=== PATIENT | male | born 1955 | race Caucasian/White ===

== ENCOUNTER 2017-03-15 18:20 | Emergency (ER) | payer OTHER ==
[~2017-03-15 18:20] MED LIST: CEPH500C3 PO; INDO25CA PO; Z.0.NO CURRENT MEDS
[2017-03-15 18:29] VITALS: BP 131/85; PULSE 81; RESP 18; O2SAT 99
[2017-03-15] MEDS ORDERED: KETOROLAC TROMETHAMINE 30 MG/ML (IVP) VIAL IV PUSH ONE (20:30)
[2017-03-15] MEDS ORDERED: ONDANSETRON HCL 4 MG/2 ML VIAL IV PUSH ONE (20:30)
[2017-03-15] MEDS ORDERED: MORPHINE SULFATE 2 MG/ML INJ IV PUSH ONE (20:30)
[2017-03-15] MEDS ORDERED: methylPREDNISolone SOD SUCC 125 MG/2 ML VIAL IV PUSH ONE (20:30)
--- NOTE | 2017-03-15 21:00 | RADRPT ---
EXAM DATE/TIME: 03/15/2017 20:34 [facility] COMPARISON: No previous studies available for comparison. INDICATIONS : Patient complains of right wrist. No known injury. MEDICAL HISTORY : None. SURGICAL HISTORY : None. ENCOUNTER: Initial ACUITY: 3 days PAIN SCORE: 10/10 LOCATION: Right Wrist FINDINGS: Three view examination of the right wrist demonstrates no soft tissue swelling, dislocation, or fract ure. The carpal bones are in normal alignment. The joint spaces are maintained. Bony mineralizatio n is normal. CONCLUSION: Unremarkable examination of the right wrist. Hector Pressley MD on March 15, 2017 at 20:57 Board Certified Radiologist. This report was verified electronically.
--- NOTE | 2017-03-15 21:02 | RADRPT ---
EXAM DATE/TIME: 03/15/2017 20:40 [facility] COMPARISON: No previous studies available for comparison. INDICATIONS : Patient complains of right hand pain. No known injury. MEDICAL HISTORY : None. SURGICAL HISTORY : None. ENCOUNTER: Initial ACUITY: 3 days PAIN SCORE: 10/10 LOCATION: Right Hand FINDINGS: Three view examination of the right hand demonstrates no soft tissue swelling, dislocation, or fractu re. The carpal bones appear intact. The interphalangeal and metacarpophalangeal joints are intact. Bony mineralization is normal. CONCLUSION: Unremarkable examination of the right hand. Hector Pressley MD on March 15, 2017 at 20:59 Board Certified Radiologist. This report was verified electronically.
[2017-03-15 21:13] VITALS: BP 126/90; PULSE 83; RESP 18; TEMP 99.1; O2SAT 97
[2017-03-15] MEDS ORDERED: ALLO100T PO (21:20)
[2017-03-15] MEDS ORDERED: GABA800T PO (21:20)
[2017-03-15] MEDS ORDERED: HYDR-3583 PO (21:20)
[2017-03-15] MEDS ORDERED: ROBA500T PO (21:20)
--- NOTE | 2017-03-15 21:25 | PD ---
HPI Chief Complaint: right wrist pain Time Seen by Provider: 21:08 Travel History International Travel<30 days: No Contact w/Intl Traveler<30days: No Traveled to known affect area: No History of Present Illness HPI 61-year-old [id number] white male presents to emergency department by EMS with complaints of right wrist pain. The patient states that he did not have a ride here this evening. Patient states that he has a history of gout in the past. He has never had in his wrist but states that is very similar. The patient states that he is an alcoholic. He drinks a pint of alcohol daily. He has continued to take his allopurinol. He is also currently in pain management and takes hydrocodone 10 mg [address] Solano. Patient denies any trauma. No numbness or tingling. Patient states pain is severe. Worse with movement. No alleviating factors. No recent illness. No fever chills. PFSH Past Medical History Narrative Medical Anxiety, depression, gout, chronic pain Anxiety: Yes Depression: Yes Musculoskeletal: Yes (CHRONIC LUMBAR-SACRAL PAIN, DISCOGENIC SYNDROME) Tetanus Vaccination: < 5 Years ?: Not Past Surgical History Surgical History: No Previous Surgery Social History Alcohol Use: Yes (PINT daily) Tobacco Use: Yes (1/2 PPD) Substance Use: No Allergies-Medications (Allergen,Severity, Reaction): Coded Allergies: No Known Allergies (Verified Adverse Reaction, Unknown, 03/15/17) Reported Meds & Prescriptions Reported Meds & Active Scripts Active Keflex (Cephalexin Monohydrate) 500 Mg Cap 500 Mg PO BID Indomethacin 25 Mg Cap 50 Mg PO Q8 50 mg three times a day for 3 days, save other pills for any other flare ups Reported No Current Meds (Miscellaneous Medication) [facility] [place] Review of Systems General / Constitutional: No: Fever Eyes: No: Visual changes HENT: No: Headaches Cardiovascular: No: Chest Pain or Discomfort Respiratory: No: Shortness of Breath Gastrointestinal: No: Abdominal Pain Genitourinary: No: Dysuria Musculoskeletal: Positive: Arthralgias, Limited ROM, Edema, Pain Skin: No Rash Neurologic: No: Weakness, Paresthesia Psychiatric: No: Depression Endocrine: No: Polydipsia Hematologic/Lymphatic: No: Easy Bruising Physical Exam Narrative GENERAL: This is a well-nourished, well-developed patient, in no apparent distress. SKIN: No rashes, ecchymoses or lesions. Warm and dry. HEAD: Atraumatic. Normocephalic. EYES: PERRL, EOMI, no discharge or injection. No scleral icterus. EARS: Clear NOSE: Nasal turbinates appear normal. THROAT: Mucosa pink and moist. Airway patent. NECK: Trachea midline. supple, moves head freely. LUNGS: Clear to auscultation. CV: Regular in rhythm. ABDOMEN: Soft nontender. EXT: Examination of the right upper extremity reveals swelling, and an warmth in the right wrist. No erythema. Patient has global decreased range of motion due to pain. Patient is able to move his fingers freely. He has intact gross sensation and good Refill. No pain in the elbow or shoulder. Data Data Last Documented VS Vital Signs Date Time Temp Pulse Resp B/P (MAP) Pulse Ox O2 Delivery O2 Flow Rate FiO2 03/15/17 21:13 83 18 126/90 (102) 97 Room Air Orders Orders Hand, Complete ([id number]) (03/15/17 20:21) Wrist, Complete ([id number]) (03/15/17 20:21) Ice/Cold Pack (03/15/17 20:21) Ketorolac Inj (Toradol Inj) (03/15/17 20:30) Methylprednisolone So Succ Inj (Solumedr (03/15/17 20:30) Morphine Inj (Morphine Inj) (03/15/17 20:30) Ondansetron Inj (Zofran Inj) (03/15/17 20:30) Ketorolac Inj (Toradol Inj) (03/15/17 21:30) Dexamethasone Inj (Decadron Inj) (03/15/17 21:30) MDM Medical Decision Making Medical Screen Exam Complete: Yes Emergency Medical Condition: Yes Medical Record Reviewed: Yes Interpretation(s) Last 24 hours Impressions Wrist X-Ray 03/15/172020 Signed Impressions: Service Date/Time: Wednesday, March 15, 2017 20:34 - CONCLUSION: Unremarkable examination of the right wrist. Hector Pressley MD Hand X-Ray 03/15/172020 Signed Impressions: Service Date/Time: Wednesday, March 15, 2017 20:40 - CONCLUSION: Unremarkable examination of the right hand. Hector Pressley MD Differential Diagnosis Differential diagnoses: Sprain, strain, gout, fracture Narrative Course X-ray of the right wrist and hand are negative for bony injury. Patient's symptoms and history are consistent with gouty arthritis. Patient's given 2 mg morphine IM, Decadron 10 mg IM, Toradol 60 mg IM. Patient is made aware that we cannot adjust any opiates due to pain management. She'll be discharged home on prednisone and indomethacin. This is acute gouty arthritis right wrist Diagnosis Primary Impression: acute gouty arthritis right wrist Patient Instructions: General Instructions, Narcotic given in the ED Additional Instructions: Rest. Elevation. Stop all alcohol. Stop cheeses and red meat. Stop allopurinol for one week. Medications as directed. Follow-up with your doctor in the next 2 days for recheck. Return to the ER for emergencies. Med/Other Pt SpecificInfo: Prescription(s) given Disposition: 01 DISCHARGE HOME Condition: Stable Nitin Pena Mar 15, 2017 21:25
[2017-03-15] MEDS ORDERED: INDO75CA3 PO (21:27)
[2017-03-15] MEDS ORDERED: PRED-503 PO (21:27)
[2017-03-15] MEDS ORDERED: KETOROLAC TROMETHAMINE 60 MG/2 ML (IM) VIAL IM ONE (21:30)
[2017-03-15] MEDS ORDERED: DEXAMETHASONE SOD PHOS 20 MG/5 ML VIAL IM ONE (21:30)
== END 2017-03-15 22:10 | disposition home or self-care (01) ==
LOC: NEPD 18:20
DX: M10.9 Gout, unspecified (principal); F10.20 Alcohol dependence, uncomplicated
CPT/HCPCS: 73110; 73130; 96372; 96374; 96375; 99284; J1100; J2270; J2405